=== PATIENT | male | born 1980 | race Caucasian/White ===

== ENCOUNTER 2016-06-08 17:19 | Emergency (ER) | payer OTHER ==
[2016-06-08 17:25] VITALS: RESP 18
--- NOTE | 2016-06-08 18:07 | XR ---
EXAMINATION TYPE: XR elbow complete RT DATE OF EXAM: 06/08/2016 6:02 PM COMPARISON: NONE HISTORY: Pain. Fell today. TECHNIQUE: 3 views FINDINGS: There is a comminuted fracture of the olecranon process of the ulna. There are fragments di splaced at least 2.5 cm. There is no obvious dislocation. There is soft tissue swelling posteriorly o n the lateral view. IMPRESSION: Severely comminuted and displaced fracture of the olecranon process of the ulna with soft tissue swelling. There is possible small foreign bodies in the soft tissues as well posteriorly.
--- NOTE | 2016-06-08 19:14 | CT ---
EXAMINATION TYPE: CT elbow RT wo con DATE OF EXAM: 06/08/2016 7:02 PM COMPARISON: NONE HISTORY: Pt states of right elbow pain after fall injury today. CT DLP: 176.9 mGycm Automated exposure control for dose reduction was used. FINDINGS: Multiple axial sections were obtained from the distal humerus to the proximal ulna with no contrast. There is a comminuted fracture of the olecranon process of the ulna. There are multiple fragments and the fragments are displaced up to 2 cm. There are small densities in the posterior soft tissues that are probably foreign bodies in the subcutaneous tissues. There is no dislocation. The radial head is intact and articulates with the humerus. The coronoid process is in anatomic position. IMPRESSION: COMMINUTED INTRA-ARTICULAR FRACTURE OF THE OLECRANON PROCESS WITH THE MODERATE DISPLACEMENT OF THE FR AGMENTS. SUBCUTANEOUS FOREIGN BODIES. NO DISLOCATION. DISTAL HUMERUS AND PROXIMAL RADIUS APPEAR INTAC T.
--- NOTE | 2016-06-08 19:15 | ED ---
General Adult HPI - General Chief complaint: Fall Stated complaint: RT ARM INJURY FROM FALL Time Seen by Provider: 06/08/16 17:33 Source: patient, RN notes reviewed Mode of arrival: ambulatory Limitations: no limitations - History of Present Illness Initial comments: Patient is a 36-year-old male who presents emergency room today with a chief complaint of a slip and fall that occurred just prior to arrival. He does admit that he slipped on the ice falling down onto the right elbow. Does admit to increased pain swelling locally. He denies any head injury or loss conscious. Denies any other past mental history. Denies any blood thinners. Admits the pain is worse with flexion of the right elbow. He denies any other complaints or symptoms. States is relatively comfortable exam straight. Patient denies any recent fever, chills, shortness of breath, chest pain, back pain, abdominal pain, nausea or vomiting, numbness or tingling, dysuria or hematuria, constipation or diarrhea, headaches or visual changes, or any other complaints. - Related Data Home Medications Medication Instructions Recorded Confirmed Ibuprofen [Motrin] 600 mg PO ONCE PRN 06/08/16 06/08/16 Previous Rx's Medication Instructions Recorded Hydrocodone/Acetaminophen [[place] 1 each PO Q6HR PRN #20 tab 06/08/16 5-325] Allergies Allergy/AdvReac Type Severity Reaction Status Date / Time No Known Allergies Allergy Verified 06/08/16 17:29 Review of Systems ROS Statement: Those systems with pertinent positive or pertinent negative responses have been documented in the HPI. ROS Other: All systems not noted in ROS Statement are negative. Past Medical History Past Medical History: No Reported History History of Any Multi-Drug Resistant Organisms: None Reported Past Surgical History: No Surgical Hx Reported Past Psychological History: No Psychological Hx Reported Smoking Status: Never smoker Past Alcohol Use History: Occasional Past Drug Use History: None Reported General Exam - General Exam Comments Initial Comments: General: The patient is awake and alert, in no distress, and does not appear acutely ill. Neck: The neck is supple, there is no tenderness or JVD. Cardiovascular: There is a regular rate and rhythm. No murmur, rub or gallop is appreciated. Respiratory: Lungs are clear to auscultation, respirations are non-labored, breath sounds are equal. No wheezes, stridor, rales, or rhonchi. Musculoskeletal: Patient does have a moderate swelling to the posterior aspect of the right elbow. Shows limited range of motion with flexion of the right elbow due to pain. Sensations are intact. Able to fully move right wrist and hand. Able to supinate and pronate. His sensations are intact pulses equal bilaterally 2+. Neurological: A&O x 3. CN II-XII intact, There are no obvious motor or sensory deficits. Coordination appears grossly intact. Speech is normal. Skin: Skin is warm and dry and no rashes or lesions are noted. Psychiatric: Normal mood and affect. Limitations: no limitations Course Vital Signs 06/08/16 17:23 Temperature 98.5 F Pulse Rate 69 Respiratory 18 Rate Blood Pressure 155/92 O2 Sat by Pulse 96 Oximetry Medical Decision Making - Medical Decision Making Patient's x-rays reviewed does show a comminuted fracture of the olecranon. Results were discussed with attending physician Dr. Villanueva who discussed case with orthopedics Dr. Carmona as patient requested to go to [facility]. Dr. Carmona recommending CT the elbow discharging and splint at a comfortable position and following up in the office tomorrow. Patient will plan states understanding. Patient splinted in a posterior long-arm splint in position of comfort. Neurovascular rechecked and intact. Disposition Clinical Impression: Fall, Olecranon fracture Disposition: HOME SELF-CARE Condition: Good Instructions: Elbow Fracture in Adults (ED) Additional Instructions: Please leave splinted in place until follow-up with orthopedics tomorrow as discussed. Please use ice to the affected area at least 4 times a day for 20 minutes at a time. Please use pain medication as needed. Please return to emergency room if any symptoms increase or worsen or for any other concerns. Prescriptions: Hydrocodone/Acetaminophen [[place] 5-325] 1 each PO Q6HR PRN #20 tab PRN Reason: Pain Referrals: Ty Lucero MD [Primary Care Provider] - 1-2 days Nelson Carmona MD [STAFF PHYSICIAN] - 1-2 days Time of Disposition: 19:06
[2016-06-08] MEDS ORDERED: HYDROcodone/APAP 5-325MG 1 EACH TAB PO STA (19:19)
[2016-06-08 19:35] VITALS: BP 152/89; PULSE 92; TEMP 97.8
== END 2016-06-08 19:34 | disposition home or self-care (01) ==
LOC: EC 17:19
DX: S52.031A Displaced fracture of olecranon process with intraarticular extension of right ulna, initial encounter for closed fracture (principal); W00.0XXA Fall on same level due to ice and snow, initial encounter
CPT/HCPCS: 29105; 99284